=== PATIENT | male | born 1960 | race Caucasian/White ===

== ENCOUNTER 2023-07-12 10:05 | Emergency (ER) | payer MEDICARE ==
[2023-07-12 12:05] LABS: White Blood Cell (WBC) Count 8.9 10x3/uL (3.5-10.5)
[2023-07-12 12:06] LABS: Hemoglobin 17.9 g/dL (13.5-17.5); Mean Corpuscular HGB CONC 36.5 g/dL (32.0-36.0); Mean Corpuscular Hemoglobin 31.8 pg (27.0-33.0); Mean Platelet Volume 8.8 fl (7.4-10.4); Platelet Count 263 10x3/uL (130-400); RBC Distribution Width 11.7 % (11.5-14.5); Red Blood Cell (RBC) Count 5.63 10x6/uL (4.32-5.72)
[2023-07-12 12:07] LABS: #Monocytes 1.1 10x3/uL (0.0-1.1); #Neutrophils 5.9 10x3/uL (1.5-8.4); %Basophils 0.6 % (0.0-2.0); %Lymphocytes 19.6 % (18.0-47.0); %Monocytes 12.2 % (0.0-10.0)
[2023-07-12 12:08] LABS: #Basophils 0.1 10x3/uL (0.0-0.2); #Eosinphils 0.1 10x3/uL (0.0-0.5)
[2023-07-12 12:51] LABS: Anion Gap 20 mmol/L (10-20); BUN (Urea Nitrogen) 18 mg/dL (8.4-25.7); Calc. Creatinine Clearance 0 mL/min (70-130); Carbon Dioxide 20 mmol/L (23-31); Chloride 91 mmol/L (98-107); Estimated GFR 99; Potassium 3.4 mmol/L (3.5-5.1); Sodium 128 mmol/L (136-145)
[2023-07-12 12:52] LABS: ALT (SGPT) 81 U/L (8-55); AST (SGOT) 69 U/L (5-34); Albumin 4.5 g/dL (3.4-4.8); Alkaline Phosphatase 63 U/L (40-110); Bilirubin, Total 1.3 mg/dL (0.2-1.2); Calcium 9.7 mg/dL (7.6-10.4); Globulin 3.6 g/dL (2.4-3.5); Glucose 95 mg/dL (80-115); Lipase 20 U/L (8-78); Protein, Total 8.1 g/dL (5.8-8.1)
[2023-07-12] MEDS ORDERED: Morphine 4 MG/ML VIAL ONE (12:58)
[2023-07-12] MEDS ORDERED: Pantoprazole 40 MG VIAL ONE (12:59)
[2023-07-12] MEDS ORDERED: Ondansetron PF 4 MG/2 ML Vial ONE (12:59)
[2023-07-12] MEDS ORDERED: Iopamidol 300 61% 100 ML VIAL FS ONE (15:13)
[2023-07-12 16:25] LABS: Bilirubin Neg (Negative); Blood, Urine Negative (Negative); Clarity Clear (Clear); Glucose, Urine (Dipstick) Normal (Negative); Ketone, Urine 5 mg/dL (Negative); Leukocyte Negative (Negative); Nitrite Negative (Negative); Protein, Urine (Dipstick) Negative (Neg-Trace); Specific Gravity, Urine 1.015 (1.005-1.030); pH, Urine 6.5 (5.0-9.0)
[2023-07-12 16:33] LABS: CAUTI Indications for Culture Pelvic or flank pain; RBC/HPF None Seen HPF (0-3); Squamous Epithelial 0-3 HPF (0-3); WBC/HPF None Seen HPF (0-3)
[2023-07-12 16:34] LABS: Bacteria/HPF Rare-Few HPF (None Seen)
[2023-07-12 16:35] LABS: Urine Culture Reflex No No
== END 2023-07-12 20:32 | disposition home or self-care (01) ==
LOC: CSHERS 10:05
DX: K26.9 Duodenal ulcer, unspecified as acute or chronic, without hemorrhage or perforation (principal); F17.210 Nicotine dependence, cigarettes, uncomplicated
CPT/HCPCS: 74177; 76705; 80053; 81001; 83605; 83690; 85025; 96374; 96375; C9113; J2270; J2405; Q9967